=== PATIENT | male | born 2005 | race Caucasian/White ===

== ENCOUNTER 2025-03-05 11:58 | Emergency (ER) | payer SELFPAY ==
[2025-03-05 11:59] VITALS: BP 130/81
--- NOTE | 2025-03-05 12:28 | ED.GENMED ---
History of Present Illness
General
Chief Complaint: Cardiac Symptoms
Source: patient
Exam Limitations: none
Time Seen by Provider: 03/05/25 12:27
History of Present Illness
History of Present Illness:
19yoM with no significant past medical history presenting for evaluation of chest pain. 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 The pain started to radiate to his back yesterday.
Pain is worse with movement, coughing, and deep breathing. He has been taking ibuprofen/Aleve with temporary relief. He was on a trip last week and had a 2 hour flight. He started to have a cough while he was on the trip. He coughed up
reddish-brown mucous today. He denies any fevers, abdominal pain, calf pain, leg swelling. No tobacco use.
Phy Exam
General Physical Exam
General Presentation: well appearing and no apparent distress
General age: appears stated age
General Skin: warm and dry
General Habitus: normal
General Mental: alert
ENT Exam
ENT Exam: normocephalic
Cardiovascular Exam
Cardiovascular Exam: regular rate/rhythm and no murmur
Pulmonary Exam
Pulmonary Exam: lungs clear, no respiratory distress, no rales, chest non tender, no crackles, no rhonchi and no wheezing
Neurological Exam
Neurological Exam: alert
[place] Coma Scale
Eye Opening: Spontaneous
Verbal Response: Oriented
Motor Response: Obeys Commands
GCS Total Score: 15
Skin Exam
Skin Exam: normal color and warm/dry
Psychiatric Exam
Psychiatric Exam: normal mood/affect
Course
Orders/Labs/Results
Orders:
Orders
03/05/25 12:02
ECG [Electrocardiogram (*1)] Urgent
Reason for Study: Chest Pain
03/05/25 12:03
EKG- Treatment ONCE
03/05/25 12:38
Cardiac Monitoring- Treatment ONCE
CR Chest - 2 Views Urgent
Comment:
Reason For Exam: L sided chest pain
03/05/25 12:43
Comprehensive Metabolic Panel Urgent
D-Dimer Urgent
Troponin I Urgent
03/05/25 12:44
Complete Blood Count/With Diff Urgent
03/05/25 13:22
CT Chest PE Study Urgent
Comment:
Reason For Exam: Chest pain, elevated D-dimer
03/05/25 16:52
Amoxicillin 875 mg/Clav 125 mg [Augmentin 875 mg/125 mg] 1 tablet PO NOW STA
Azithromycin [Zithromax] 500 mg PO NOW STA
Abnormal Lab Results
03/05/25 03/05/25
12:43 12:44
WBC 12.0 H 10^3/uL
(4.8-10.8)
Absolute Neuts (auto) 9.5 H 10^3/uL
(1.4-6.5)
Absolute Monos (auto) 1.1 H 10^3/uL
(0.1-0.6)
Neutrophils % 79.3 H %
(42.2-75.2)
Lymphocytes % 10.8 L %
(20.5-51.1)
D-Dimer 1.57 H ug/mlFEU
(0.00-0.50)
03/05/25 12:44
03/05/25 12:43
Vital Signs
Initial and Last Documented VS:
Initial Vital Signs
Temp Pulse Resp BP Pulse Ox
98.3 F 84 16 130/81 98
03/05/25 11:59 03/05/25 11:59 03/05/25 11:59 03/05/25 11:59 03/05/25 11:59
Last Documented Vital Signs
Temp Pulse Resp BP Pulse Ox
98.3 F 91 21 168/76 98
03/05/25 11:59 03/05/25 16:30 03/05/25 14:45 03/05/25 15:00 03/05/25 16:45
MDM/Problems Addressed
Differential Diagnosis Includes:
19yoM here with L chest pain that radiates to back. Worse with movement/coughing/breathing and improved with NSAIDs. Had a 2 hour flight yesterday. Also c/o cough. VSS. He is well appearing in no distress. There is no chest wall tenderness on exam.
Differential diagnosis includes but is not limited to: musculoskeletal, pleurisy, pneumothorax, pneumonia, PE, less likely ACS
Initial ED plan: Check cardiac labs, D-dimer, EKG, and CXR. He declines analgesics.
*Pulse Oximetry
SaO2: 98
Oxygen Mode of Delivery: Room air
Patient hypoxic: no (98%)
*EKG
Interpreted by ED Provider?: Yes
EKG Intrepretation Date: 03/05/25
Heart Rate: 84
Rate: normal
Rhythm: sinus
[place]: normal axis
Interval: normal interval
QRS Pattern: normal QRS
Ischemia: no ischemia
*Critical Care Note
Total Time (30-74mins, 75-104mins- exclusive of procedures): Not Applicable
Update Note
Update Note:
No ischemic changes on EKG and troponin within normal limits. Mild leukocytosis noted with a white count of 12. Chest x-ray shows evidence of pneumonia. D-dimer elevated and CTA chest subsequently ordered. Evaluation slightly limited within
segmental and subsegmental arteries but there is no CT evidence of central pulmonary embolism. Imaging again shows evidence of left-sided pneumonia. No evidence of hypoxia throughout ED stay. No indication for hospitalization. He was started on
a course of Augmentin and azithromycin to cover for CAP. Advised follow-up with PCP and repeat outpatient chest x-ray in 6 weeks to ensure resolution. ED return precautions reviewed. Patient discharged in stable condition.
ED Attending Note
-
Portions of this chart may have been created with voice recognition software.� Occasional wrong word or��sound alike� substitutions may have occurred due to the inherent limitations of voice recognition software.
Discharge Plan
Departure
Patient Disposition: Home (Routine Discharge)
Date of Disposition: 03/05/25
Time of Disposition: 16:51
Patient with high blood pressure during this ER visit?: Yes
Discharge Problem:
Pneumonia involving left lung
Instructions: Community-acquired pneumonia in adults
Prescriptions:
New
amoxicillin-pot clavulanate 875-125 mg tablet
1 tab PO BID Qty: 13 0RF
azithromycin [Zithromax Z-Per] 250 mg tablet
250 mg PO DAILY Qty: 4 0RF
No Action
amoxicillin-pot clavulanate 875-125 mg tablet
1 tab PO BID Qty: 10 0RF
Referrals:
UNKNOWN - PT DOES,NOT KNOW [Family Provider]
Activity Restrictions/Additional Instructions:
Take antibiotics as prescribed. Drink plenty of fluids and stay hydrated. He may take Tylenol or ibuprofen as needed for pain.
Please follow-up with your family doctor next week. You will need a repeat chest x-ray in 6 weeks.
Return to the ER with any new or worsening symptoms.
Interventions
Interventions:
*Risk Screen - Suicide Last Done: 03/05/25 11:59
*General Assessment Last Done: 03/05/25 11:59
*Neglect/Abuse Screening Last Done: 03/05/25 12:57
*ED- Fall Risk Assessment Last Done: 03/05/25 12:57
*ED COVID-19 Vaccine History Last Done: 03/05/25 12:57
*Nursing Disposition Last Done: 03/05/25 17:23
ED- Pulmonary Assessment Last Done: 03/05/25 12:57
ED- Cardiac Assessment Last Done: 03/05/25 12:57
Discharge Date and Time
Discharge Date/Time: 03/05/25 17:23
Print Language: MACEDONIAN
[2025-03-05 12:50] VITALS: BP 143/75
[2025-03-05 13:02] VITALS: BP 126/84
[2025-03-05 13:04] LABS: Hematocrit 40.7 % (39.0-52.0); Hemoglobin 13.9 g/dL (13.0-18.0); Mean Corp Hgb Conc. 34.2 g/dL (33.0-37.0); Mean Corpuscular Volume 82.1 fL (80.0-94.0); Nucleated Red Blood Cells % 0 % (-); Platelet Count 315 10^3/uL (130-400); Red Cell Dist. Width 12.1 % (11.5-14.5)
[2025-03-05 13:11] LABS: D-Dimer 1.57 ug/mlFEU (0.00-0.50)
[2025-03-05 13:19] LABS: ALT (SGPT) 19 U/L (0-50); AST (SGOT) 18 U/L (17-59); Albumin 4.0 g/dl (3.5-5.0); Alkaline Phosphatase 65 U/L (38-126); Blood Urea Nitrogen 11 mg/dl (9-20); Calcium 9.4 mg/dl (8.4-10.2); Carbon Dioxide 26 mmol/L (22-30); Chloride 106 mmol/L (98-107); Glucose 93 mg/dl (70-99); Potassium 4.4 mmol/L (3.5-5.1); Sodium 138 mmol/L (135-145); Total Protein 6.9 g/dl (6.3-8.2); eGFR > 60.00
[2025-03-05 13:34] LABS: Troponin I < 0.012 ng/ml
[2025-03-05 14:13] VITALS: BP 149/74
[2025-03-05 15:00] VITALS: BP 168/76
[2025-03-05] MEDS: ZITHROMAX 500 MG PO (16:59)
[2025-03-05] MEDS: AUGMENTIN 875 MG/125 MG 1 TABLET PO (16:59)
== END 2025-03-05 17:23 | disposition home or self-care (01) ==
LOC: EMR 11:58
PROVIDERS: Physician Assistant; EMERGENCY PHYSICIAN Emergency Medicine
DX: J18.9 Pneumonia, unspecified organism (principal); R79.1 Abnormal coagulation profile
CPT/HCPCS: 99285; 71046; 71275; 80053; 84484; 85025; 85379; 93005; Q9967